=== PATIENT | female | born 1995 | race Two or more races ===

== ENCOUNTER 2016-06-19 19:52 | Emergency (ER) | payer OTHER ==
[2016-06-19 20:07] VITALS: BMI 22.8
[2016-06-19 20:16] LABS: URINE APPEARANCE TURBID; URINE BILIRUBIN NEGATIVE (NEGATIVE); URINE BLOOD NEGATIVE (NEGATIVE); URINE COLOR YELLOW; URINE GLUCOSE (UA) NEGATIVE (NEGATIVE); URINE KETONE 2+ (NEGATIVE); URINE NITRITE POSITIVE (NEGATIVE); URINE UROBILINOGEN NEGATIVE E.U./dl (0.2-1.0)
[2016-06-19 20:18] LABS: URINE LEUK ESTERASE 3+ (NEGATIVE); URINE PROTEIN 2+ (NEGATIVE)
[2016-06-19 20:19] LABS: URINE BACTERIA RARE /hpf (NONE SEEN); URINE MUCUS MODERATE; URINE RBC 48 /hpf (0-3); URINE WBC 1183 /hpf (3-5)
--- NOTE | 2016-06-19 22:17 | PDOC ---
History of Present Illness - General History Source: Patient Exam Limitations: No Limitations - History of Present Illness Initial Comments: 06/19/16 22:21 Patient is a 20 year old female, , 16 weeks , with no significant past medical history who presents to the ED with left flank pain and abdominal pain. Patient had a recent US with her doctor. TELEPHONE COLLECTOR - Dr. Hooper <Holly Shine - Last Filed: 06/19/16 22:21> <Sola Truong - Last Filed: 06/19/16 23:53> - General Chief Complaint: Pain, Acute Stated Complaint: 16WKS/ABD PAIN Time Seen by Provider: 06/19/16 20:45 Past History <Holly Shine - Last Filed: 06/19/16 22:21> - Past Medical History Asthma: No Cancer: No Cardiac Disorders: No Diabetes: No HTN: No Seizures: No Thyroid Disease: No - Reproductive History Is Patient Now?: Yes (#): 2 Para: 1 - Psycho/Social/Smoking Cessation Hx Suicidal Ideation: No Smoking History: Never smoked Have you smoked in the past 12 months: No Hx Alcohol Use: No Drug/Substance Use Hx: No Hx Substance Use Treatment: No <Sola Truong - Last Filed: 06/19/16 23:53> - Past Medical History Allergies/Adverse Reactions: Allergies Allergy/AdvReac Type Severity Reaction Status Date / Time No Known Allergies Allergy Verified 09/16/15 11:36 Home Medications: Ambulatory Orders Levothyroxine [Synthroid -] 1 tab PO DAILY 07/24/15 Vit/Iron Fumarate/FA [ Tablet] 1 each PO DAILY 07/24/15 Cephalexin Monohydrate [Keflex -] 500 mg PO Q6H #20 capsule 06/19/16 Review of Systems - Review of Systems Able to Perform ROS?: Yes Comments:: 06/19/16 22:21 CONSTITUTIONAL: Absent: fever, chills, diaphoresis, generalized weakness, malaise, loss of appetite HEENT: Absent: rhinorrhea, nasal congestion, throat pain, throat swelling, difficulty swallowing, mouth swelling, ear pain, eye pain, visual Changes CARDIOVASCULAR: Absent: chest pain, syncope, palpitations, irregular heart rate, lightheadedness , peripheral edema RESPIRATORY: Absent: cough, shortness of breath, dyspnea with exertion, orthopnea, wheezing, stridor, hemoptysis GASTROINTESTINAL: Absent: abdominal pain, abdominal distension, nausea, vomiting, diarrhea, constipation, melena, hematochezia GENITOURINARY: Present: left flank pain Absent: dysuria, frequency, urgency, hesitancy, hematuria, flank pain, genital pain MUSCULOSKELETAL: Absent: myalgia, arthralgia, joint swelling SKIN: Absent: rash, itching, pallor HEMATOLOGIC/IMMUNOLOGIC: Absent: easy bleeding, easy bruising, lymphadenopathy, frequent infections ENDOCRINE: Absent: unexplained weight gain, unexplained weight loss, heat intolerance, cold intolerance NEUROLOGIC: Absent: headache, focal weakness or paresthesias, dizziness, unsteady gait, seizure, mental status changes, bladder or bowel incontinence PSYCHIATRIC: Absent: anxiety, depression, suicidal or homicidal ideation, hallucinations. <Holly Shine - Last Filed: 06/19/16 22:21> *Physical Exam - Vital Signs Last Vital Signs Temp Pulse Resp BP Pulse Ox 98.1 F 111 H 18 107/56 99 06/19/16 20:06 06/19/16 20:06 06/19/16 20:06 06/19/16 20:06 06/19/16 20:06 - Physical Exam Comments: 06/19/16 22:22 GENERAL: Well developed, well nourished. Awake and alert. No acute distress. HEENT: Normocephalic, atraumatic. PERRLA, EOMI. No conjunctival pallor. Sclera are non- icteric. Moist mucous membranes. Oropharynx is clear. NECK: Supple. Full ROM. No JVD. Carotid pulses 2+ and symmetric, without bruits. No thyromegaly. No lymphadenopathy. CARDIOVASCULAR: Regular rate and rhythm. No murmurs, rubs, or gallops. Distal pulses are 2+ and symmetric. PULMONARY: No evidence of respiratory distress. Lungs clear to auscultation bilaterally. No wheezing, rales or rhonchi. ABDOMINAL: Soft. Non-tender. Non-distended. No rebound or guarding. No organomegaly. Normoactive bowel sounds. MUSCULOSKELETAL +Left CVA tenderness. Normal range of motion at all joints. No bony deformities or tenderness. EXTREMITIES: No cyanosis. No clubbing. No edema. No calf tenderness. SKIN: Warm and dry. Normal capillary refill. No rashes. No jaundice. NEUROLOGICAL: Alert, awake, appropriate. Cranial nerves 2-12 intact. No deficits to light touch and temperature in face, upper extremities and lower extremities. No motor deficits in the in face, upper extremities and lower extremities. Normoreflexic in the upper and lower extremities. Normal speech. PSYCHIATRIC: Cooperative. Good eye contact. Appropriate mood and affect. <Holly Shine - Last Filed: 06/19/16 22:21> - Vital Signs Last Vital Signs Temp Pulse Resp BP Pulse Ox 98.1 F 111 H 18 107/56 99 06/19/16 20:06 06/19/16 20:06 06/19/16 20:06 06/19/16 20:06 06/19/16 20:06 <Sola Truong - Last Filed: 06/19/16 23:53> ED Treatment Course - ADDITIONAL ORDERS Additional order review: Laboratory Results 06/19/16 20:10 Urine Color Yellow Urine Appearance Turbid Urine pH 7.0 Ur Specific [place] 1.015 Urine Protein 2+ H Urine Glucose (UA) Negative Urine Ketones 2+ H Urine Blood Negative Urine Nitrite Positive Urine Bilirubin Negative Urine Urobilinogen Negative Ur Leukocyte Esterase 3+ H Urine RBC 48 Urine WBC 1183 Ur Epithelial Cells Moderate Urine Bacteria Rare Urine Mucus Moderate <Holly Shine - Last Filed: 06/19/16 22:21> - LABORATORY CBC & Chemistry Diagram: 06/19/16 22:12 06/19/16 22:12 - ADDITIONAL ORDERS Additional order review: Laboratory Results 06/19/16 20:10 Urine Color Yellow Urine Appearance Turbid Urine pH 7.0 Ur Specific [place] 1.015 Urine Protein 2+ H Urine Glucose (UA) Negative Urine Ketones 2+ H Urine Blood Negative Urine Nitrite Positive Urine Bilirubin Negative Urine Urobilinogen Negative Ur Leukocyte Esterase 3+ H Urine RBC 48 Urine WBC 1183 Ur Epithelial Cells Moderate Urine Bacteria Rare Urine Mucus Moderate - RADIOLOGY Radiology Studies Ordered: Category Date Time Status LIMITED US [US] Stat Ultrasound 06/19/16 20:49 Completed <Sola Truong - Last Filed: 06/19/16 23:53> Medical Decision Making - Medical Decision Making 06/19/16 22:17 20 yo p/w dysurai and flank pain -no vomiting,she is able to take po -UA positive for UTI US revels SL IUP 17 weeks 2 days FHT 176 bpm, low layingplacenta case discussed with engineer station mainline [place] -since pt is only 17 weeks the fetus is nonviable therefore the pt can be given antibiotics and seen again in 24 hours for repeat cbc -Dr Hall recommended keflex 500mg QID 06/19/16 23:48 glucose was 67 and pt given orange juice to izabel -pt startedon keflex and given the first dose tmp =100.2 and given tylenol <Sola Truong - Last Filed: 06/19/16 23:53> *DC/Admit/Observation/Transfer - Attestations Scribe Attestion: 06/19/16 22:22 Documentation prepared by YENNIFER Martinez, acting as medical record specialist for Sola Truong MD. <Holly Shine - Last Filed: 06/19/16 22:21> <Sola Truong - Last Filed: 06/19/16 23:53> Diagnosis at time of Disposition: Pyelonephritis affecting in second trimester - Discharge Dispostion Disposition: HOME Condition at time of disposition: Stable - Prescriptions Prescriptions: Cephalexin Monohydrate [Keflex -] 500 mg PO Q6H #20 capsule - Referrals Referrals: Betsy Sullivan MD [Primary Care Provider] - - Patient Instructions Printed Discharge Instructions: DI for Kidney Infection Additional Instructions: YOU HAVE A URINARY TRACT INFECTION PLEASE PROFESSOR OF JOURNALISM YOUR ANTIBIOTICS AT YOUR PHARMACY AND TAKE THE ANTIBIOTICS PRESCRIBED TAKE TYLENOL FOR FEVER AND BODY ACHES KEEP HYDRATED RETURN TO THE EMERGENCY DEPARTMENT TOMORROW TO SEE DR TRUONG FOR REPEAT BLOOD TEST
[2016-06-19] MEDS ORDERED: CEPHALEXIN MONOHYDRATE 500 MG CAPSULE (UD) PO ONE (22:21)
[2016-06-19] MEDS ORDERED: CEPHALEXIN MONOHYDRATE 250 MG CAPSULE (FP) ONE (22:26)
[2016-06-19 22:36] LABS: BASOPHIL 0.2 % (0-2.0); EOSINOPHIL 0.1 % (0-4.5); MCH 24.8 pg (25.7-33.7); MCHC 32.5 g/dl (32.0-36.0); MEAN CELL VOLUME 76.3 fl (80-96); NEUTROPHILS 88.1 % (42.8-82.8); PLATELET COUNT 190 K/MM3 (134-434); RDW 15.7 % (11.6-15.6); WHITE BLOOD COUNT 14.4 K/mm3 (4.0-10.0)
[2016-06-19 23:02] LABS: ALBUMIN 3.1 g/dl (3.4-5.0); ALK PHOS 48 U/L (45-117); ANION GAP 14 (8-16); BILIRUBIN,TOTAL 0.4 mg/dL (0.2-1.0); CALCIUM 8.5 mg/dL (8.5-10.1); CO2 18 mmol/L (21-32); COCKROFT - GAULT 196.0015; CREATININE 0.4 mg/dL (0.55-1.02); GLUCOSE,RANDOM 67 mg/dL (74-106); SGPT/ALT 13 U/L (12-78); TOT PROT 6.8 g/dl (6.4-8.2)
[2016-06-19 23:15] LABS: SGOT/AST 22 U/L (15-37)
[2016-06-19] MEDS ORDERED: ACETAMINOPHEN 325 MG TABLET (FP) ONE (23:48)
[2016-06-19] MEDS ORDERED: ACETAMINOPHEN 325 MG TABLET (FP) PO ONE (23:53)
[2016-06-19 23:54] VITALS: BP 92/66; PULSE 105; TEMP 100.2
== END 2016-06-20 00:02 | disposition home or self-care (01) ==
LOC: JER 19:52
DX: O23.02 Infections of kidney in pregnancy, second trimester (principal); Z3A.17 17 weeks gestation of pregnancy
CPT/HCPCS: 36415; 76815-TC; 80053; 81003; 81015; 85025; 87086; 99282-25